=== PATIENT | male | born 1980 | race African-American/Black ===

== ENCOUNTER 2024-08-26 06:23 | Day surgery (SDC) | payer OTHER, SELFPAY ==
[2024-08-12 10:55] VITALS: BMI 36.6
--- NOTE | 2024-08-26 06:50 | P.OP_ITS ---
Procedure Note - Detailed Date of Procedure 08/26/24 Pre-op Diagnosis Ganglion Cyst Right Dorsal Wrist Post-op Diagnosis Same Procedure Performed right dorsal wrist ganglion excision Surgeon Constanza Arias MD Content Development Specialist contreras hawkins pa-c Anesthesia MAC Description of Procedure INFORMED CONSENT: The patient was seen and examined and marked in the pre-op area.? The patient signed the consent form. PROCEDURE IN DETAIL:The patient taken back to OR on the stretcher in supine position. Time out performed with anesthesia, surgeon and staff agreeing on patient's name site and surgery to be performed SCDs were placed on the lower extremities and inflated. A tourniquet was placed on {right} upper extremity and antibiotics given IV After anesthesia administered sedation I injected {6}cc 1%lido with epi and 0.5% marcaine plain at the operative site The?{right upper extremity}?was prepped and draped in sterile fashion the??{right upper extremity} was? exsanguinated with Esmarch bandage proximal to the mass and tourniquet inflated to 250mmHg I proceeded with making a longitudinal incision over the right dorsal wrist mass through skin and dermis with a 15 blade scalpel. Littler scissors were used to spread through subcutaneous tissue down to the capsule of the mass. I proceeded with circumferential dissection of the mass down to the dorsal wrist capsule. I transected the mass at the wrist capsule with bipolar cautery. I irrigated with normal saline. I repaired the capsular defect and extensor retinaculum with 4-0 Vicryl suture. There was no impingement on wrist or finger range of motion. 4- 0 Vicryl for dermis and 4-0 Monocryl was used for subcuticular closure. A dressing of Dermabond, 4x4, sabas, and a volar splint was applied for patient safety, security, and comfort and secured with an caroline bandage after the tourniquet was let down noting the hand was warm and well perfused. The patient was then awaken from anesthesia and transferred to the recovery room in stable condition.? Complications - none EBL- 0cc Disposition - home in stable condition Contreras Hawkins PA-C was essential for positioning, retraction, closure and dressing placement AM Billing Surgery - Charge Forward: Surgery Billing ([id number] for contreras)
--- NOTE | 2024-08-26 06:50 | WPDHPUPDATE1 ---
History and Physical Update Update Date/Time: 08/26/24 06:50 Patient seen and examined in pre-operative holding area. No interval change in medical history or symptoms. Patient recalls previous discussion of benefits and alternatives to procedure. Continues to desire to proceed with right dorsal wrist ganglion cyst excision. Reviewed procedure, post-op expectations and risks including but not limited to bleeding, infection, injury to tendon/nerve/vessel, decreased hand function, stiffness, RSD, no change or worsening of symptoms, recurrence. I discussed the possible use of assistants and their participation in the case. Patient stated understanding and signed the consent form wishing to proceed.
--- OUTSIDE RECORDS SUMMARY | 2024-08-26 07:04 | XMS_ITS | Clinical Summary ---
Author Organization [facility] Address [address] [place] [address] Care Team Providers Care Fiber Artist Name Role Phone Yovany Carter DO Primary Care Provider +1- [phone] Allergies No known active allergies Medications ondansetron ODT (ZOFRAN-ODT) 4 mg disintegrating tablet Take 1 tablet (4 mg total) by mouth every 8 (eight) hours as needed for nausea or vomiting 30 tablet 4 Active HYDROcodone-acetami nophen (NORCO) 5-325 mg per tabletIndications:P ain Take 1 tablet by mouth every 6 (six) hours as needed for pain 15 tablet 4 Active tamsulosin (FLOMAX) 0.4 mg extended release capsule Take 1 capsule (0.4 mg total) by mouth daily for 10 days 10 capsule 4 Active Social History Tobacco Use Types Packs/Day Years Used Date Smoking Tobacco: Never Assessed Personal Safety Answer Date Recorded Have you ever been in or are you currently in a harmful physical or emotional relationship or is someone making you feel afraid or unsafe? 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 Gender Identity Not on file Sexual Orientation Not on file Last Filed Vital Signs Vital Sign Reading Time Taken Comments Blood Pressure 137/93 06/12/2023 10:20 PM CDT Pulse 64 06/12/2023 10:24 PM CDT Temperature 37 C (98.6 F) 06/12/2023 8:01 PM CDT Respiratory Rate 18 06/12/2023 10:2 4 PM CDT Oxygen Saturation 98% 06/12/2023 10: 24 PM CDT Inhaled Oxygen Concentration - - Weight 123.6 kg (272 lb 7.8 oz) 06/12/2023 7:58 PM CDT Height 182.9 cm (6') 06/12/2023 8:01 PM CDT Body Mass Index 36.96 06/12/2023 7:58 PM CDT Plan of Treatment Health Maintenance Due Date Last Done Comments Depression Screening 1980 Hepatitis C Screening 1980 Prostate Cancer Screening-PSA 1980 DTaP/Tdap/Td Vaccine (6 - Tdap) 1992 06/24/1986, 10/30/1983, 10/09/1982, Additional history exists Varicella Vaccines (1 of 2 - 13+ 2-dose series) 1994 Hepatitis B Screening 09/22/1999 Regular Well Visit/Exam 18-64 09/22/1999 Influenza Vaccine (Season Ended) 2024 HPV Vaccines Aged Out No longer eligi ble based on patient's age to complete this topic Pneumococcal vaccine <65 Aged Out No longer eligible based on patient's age to complete this topic Insurance [employer] OPEN ACCESS Care Teams Fiber Artist Relationship Specialty Start Date End Date Yovany Carter DO PCP - General Internal Medicine 4/18/24
--- OUTSIDE RECORDS SUMMARY | 2024-08-26 07:04 | XMS_ITS | Clinical Summary ---
Author Organization [facility] Address [address] [place] [address] Care Team Providers Care Supervisor Framing Mill Name Role Phone Unavailable Primary Care Provider Unavailabl e Social History Tobacco Use Types Packs/Day Years Used Date Smoking Tobacco: Never Assessed Sex and Gender Information Value Date Recorded Sex Assigned at Not on file Legal Sex Male 5:17 PM CDT Gender Identity Not on file Sexual Orientation Not on file Plan of Treatment Health Maintenance Due Date Last Done Comments Annual Physical 1984 Hepatitis C 09/22/1999 DTaP, Tdap and Td Vaccines ( 1 - Tdap) 2000 Hepatitis B Vaccines (1 of 3 - 19+ 3-dose series) 2000 COVID-19 Vaccine (2023-2 5 season) 2023 HPV Vaccines Aged Out No longer eligi ble based on patient's age to complete this topic Meningococcal B Vaccine Aged Out No l onger eligible based on patient's age to complete this topic Meningococcal Vaccine Aged Out No alyssa sangita eligible based on patient's age to complete this topic Pneumococcal Vaccine: Pediat rics (0 to 5 Years) and At-Risk Patients (6 to 49 Years) Aged Out No longer eligible b ased on patient's age to complete this topic RSV Immunizations Under 20 Months Aged Out No longer eligible based on patient's age to complete this topic
--- OUTSIDE RECORDS SUMMARY | 2024-08-26 07:04 | XMS_ITS | Referral Summary ---
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
--- OUTSIDE RECORDS SUMMARY | 2024-08-26 07:04 | XMS_ITS | Clinical Summary ---
Author Organization [facility] Health Address [address] [place] [address] Care Team Providers Care Carrier Packer Name Role Phone Unavailable Primary Care Provider Unavailabl e Social History Tobacco Use Types Packs/Day Years Used Date Smoking Tobacco: Never Assessed Sex and Gender Information Value Date Recorded Sex Assigned at Not on file Legal Sex Male 1:20 AM PST Gender Identity Not on file Sexual Orientation Not on file Plan of Treatment Not on file
--- OUTSIDE RECORDS SUMMARY | 2024-08-26 07:04 | XMS_ITS | Encounter Summary ---
Author Organization [facility] Address [address] [place] [address] Care Team Providers Care R Developer Name Role Phone Unavailable Primary Care Provider Unavailabl e Prior Encounters Date Type Department Care Team Description 03/15/2019 Converted 13x Documents [facility] [address] [place] [address] <No scans attached> Plan of Treatment Not on file Procedures Procedure Name Priority Date/Time Associated Diagnosis Comments MISSED APPOINTMENT Routine 08/20/2017 2:00 AM CDT Visit Diagnoses Not on file
[2024-08-26 07:18] VITALS: BP 132/93; PULSE 78; RESP 18; TEMP 37.2; O2SAT 100
[2024-08-26] MEDS: ACETAMINOPHEN 500 MG TABLET 1000 MG PO (07:31)
--- NOTE | 2024-08-26 08:01 | P.PNAN_ITS ---
Anes - Initial Pre Proc Eval Procedure: Operation Date: 08/26/24 08:30 Proposed Procedures p Excision Ganglion Cyst Right Dorsal Wrist - Constanza Arias MD Date/Time: 08/26/24 08:01 Surgeon: Constanza Arias MD Pre Op Diagnosis: Ganglion Cyst Right Dorsal Wrist Patient Data Age: 43 Gender: M Height: 1.83 m Weight: 121.95 kg Last Vital Signs Temp 98.9 F 08/26/24 07:18 Pulse 78 08/26/24 07:18 Resp 18 08/26/24 07:18 BP 132/93 H 08/26/24 07:18 Pulse Ox 100 08/26/24 07:18 O2 Del Method Room Air 08/26/24 07:18 Allergies Allergy/AdvReac Type Severity Reaction Status Date / Time No Known Allergies Allergy Verified 08/26/24 07:16 Home Medications ?Medication ?Instructions ?Recorded ?Confirmed ?Type tramadol 50 mg tablet 50 mg PO Q6H PRN pain #12 tabs 08/26/24 Rx Patient hx anesthesia problems: none Family hx anesthesia problems: none Results Review: All pre-operative results and documents have been reviewed as part of the pre- operative evaluation. [facility] Family History Family History (Updated 03/11/23 @ 13:22 by Sarah Regan CMA) Father Diabetes mellitus Social History Social History (Updated 03/19/23 @ 11:47 by Kemi Trinidad CMA) Smoking status: Never smoker Second hand tobacco smoke exposure: Yes Alcohol intake: never Substance use: never Substance use type: does not use Lack of Transportation: No Lack of Food: Never True Current Housing: I Have Housing Concerned About Future Housing: No Difficulty Paying Gas/Electric Bills: No Difficulty Paying for Meds: No Currently Unemployed: No Education: High School Diploma/GED Difficulty w/ Childcare or Family Care: No Living arrangements: with family Spiritual care concerns: No Anes - Eval Final PreProcedure Day of Procedure 08/26/24 08:01 Heart: regular rate and rhythm Lungs: clear to auscultation Airway: Mallampati scale class II and other (possible sleep apnea) Neurological: alert and oriented Last oral intake: >/= 8 hours ASA classification: II Anesthetic plan: proceed Anesthesia type and monitoring: monitored anesthesia care Results Review: All pre-operative results and documents have been reviewed as part of the pre- operative evaluation. Informed Consent: The patient's anesthetic plan and its attendant risks and benefits were discussed with the patient/family/POA. Questions were solicited and answers provided to the satisfaction of the patient/family/POA.
--- NOTE | 2024-08-26 08:02 | WPDANESPN ---
Anes - Prog Note Post-Op Date/Time: 08/26/24 08:02 Vital Signs: Last Vital Signs Temp 98.9 F 08/26/24 07:18 Pulse 78 08/26/24 07:18 Resp 18 08/26/24 07:18 BP 132/93 H 08/26/24 07:18 Pulse Ox 100 08/26/24 07:18 O2 Del Method Room Air 08/26/24 07:18 Pain Score (VAS): no Patient Feedback: Patient satisfied with anesthetic care.
[2024-08-26] MEDS: LACTATED RINGERS 1,000 ML 30 ML IV CONT (08:03)
[2024-08-26] MEDS: ceFAZolin SODIUM 2 GM/20 ML SW SYRINGE IV PUSH (08:50)
[2024-08-26] MEDS: LIDO 1%/EPINEPHRINE 1:100,000 10 ML VIAL 6 ML INFILTRATE (08:54)
--- NOTE | 2024-08-26 09:11 | WPDANESPN ---
Anes - Prog Note Post-Op Date/Time: 08/26/24 09:11 Vital Signs: Last Vital Signs Temp 98.9 F 08/26/24 07:18 Pulse 78 08/26/24 07:18 Resp 18 08/26/24 07:18 BP 132/93 H 08/26/24 07:18 Pulse Ox 100 08/26/24 07:18 O2 Del Method Room Air 08/26/24 07:18 Pain Score (VAS): no Patient Feedback: Patient satisfied with anesthetic care.
[2024-08-26 09:26] VITALS: BP 97/63; PULSE 96; RESP 17; O2SAT 90
[2024-08-26 09:36] VITALS: BP 103/67; PULSE 82; RESP 18; O2SAT 94
[2024-08-26 09:46] VITALS: BP 108/83; PULSE 72; RESP 18; O2SAT 92
== END 2024-08-26 10:18 | disposition home or self-care (01) ==
PROVIDERS: PCP Internal Medicine; Visit Provider Plastic Surgery
PROC: (CPT 25111; principal; 2024-08-26 08:30)
DX: M67.431 Ganglion, right wrist (principal)
CPT/HCPCS: 25111

== ENCOUNTER 2024-08-26 10:09 | Outpatient (NON) | payer OTHER, SELFPAY ==
--- NOTE | 2024-08-26 | S_PTH ---
PATIENT: Issac Valadez Jr. LOC: [facility] U#:[id number] AGE/SX: 43/M ROOM: RE08/26/[address]: Constanza Arias MD : 1980 BED: DIS: 08/26/2024 SPEC #: [id number] RECD: 08/30/24 10:26 STATUS: TYRELL REQ #: [id number] ARNOLD: 08/26/24 00:[address]: Constanza Arias DEPT: [facility] Surgical RECD BY: Kelsy Bravo ENTERED: 08/30/24 10:27 SP TYPE: Surgical OTHR DR: Yovany Carter DO Tissues: A - Cyst Procedures: Hematoxylin and Eosin Stain Gross and Microscopic Level 4
--- OUTSIDE RECORDS SUMMARY | 2024-08-30 10:21 | XMS_ITS | Encounter Summary ---
Author Organization [facility] Health Address [address] [place] [address] Care Team Providers Care Vascular Ultrasound Technologist Name Role Phone Unavailable Primary Care Provider Unavailabl e Prior Encounters Date Type Department Care Team Description 03/15/2019 Converted 13x Documents [facility] [address] [place] [address] <No scans attached> Plan of Treatment Not on file Procedures Procedure Name Priority Date/Time Associated Diagnosis Comments MISSED APPOINTMENT Routine 08/20/2017 2:00 AM CDT Visit Diagnoses Not on file
--- OUTSIDE RECORDS SUMMARY | 2024-08-30 10:21 | XMS_ITS | Clinical Summary ---
Author Organization [facility] Health Address [address] [place] [address] Care Team Providers Care Chain Carrier Name Role Phone Unavailable Primary Care Provider [...]
--- OUTSIDE RECORDS SUMMARY | 2024-08-30 10:21 | XMS_ITS | Clinical Summary ---
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
--- OUTSIDE RECORDS SUMMARY | 2024-08-30 10:21 | XMS_ITS | Referral Summary ---
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
--- OUTSIDE RECORDS SUMMARY | 2024-08-30 10:21 | XMS_ITS | Clinical Summary ---
Author Organization [facility] Address [address] [place] [address] Care Team Providers Care Telephone Lines Repairer Name Role Phone Unavailable Primary Care Provider [...]
== END 2024-08-26 10:10 | disposition home or self-care (01) ==
LOC: ANHLAB 08-30 10:12
PROVIDERS: PCP Internal Medicine; Visit Provider Plastic Surgery
DX: M67.431 Ganglion, right wrist (principal)
CPT/HCPCS: 88305